=== PATIENT | female | born 1935 | race Caucasian/White ===

== ENCOUNTER 2016-04-21 18:41 | Emergency (ER) | payer MEDICARE, OTHER ==
[~2016-04-21] VITALS: Ht 149.9 cm; Wt 55.0 kg
[~2016-04-21 18:41] MED LIST: ALBI30PE SQ; APIX5TAB PO; CARV12.579 PO; DONE5TAB7 PO; EZET10TA3 PO; FAMO-18 PO; FER325 PO; FURO20TA3 PO; GLIM4TAB PO; LANT3I SC; MIRT30TA5 PO; MTF1000T PO; NIT4 SL; SERT50TA6 PO; TRAM-40 PO; ZOC20 PO
[2016-04-21 19:12] VITALS: Ht 149.9 cm; Wt 55.0 kg
[2016-04-22] MEDS ORDERED: HYDROCODONE/APAP (10/325) TAB PO ONE (02:30)
--- NOTE | 2016-04-22 02:48 | RADRPT ---
PROCEDURE: XR Elbow. CLINICAL INDICATION: fall TECHNIQUE: AP, lateral and oblique views of the left elbow performed. COMPARISON: None. FINDINGS: No fracture or dislocation is seen. The lateral view is fairly oblique, however, making exclusion o f effusion difficult. Cortical irregularity of the lateral humeral condyle may be due to prior tend onitis or trauma. No definite acute abnormality. IMPRESSION: No definite acute abnormality but no true lateral view was obtained. If there is strong clinical henderson spicion for fracture or effusion, true lateral view could be performed. RPTAT: [facility]BE Physician Kristian Date Time Electronically viewed and signed by Mili Suarez Physician on 04/22/2016 02:48 LE/
--- NOTE | 2016-04-22 02:55 | RADRPT ---
PROCEDURE: XR bilateral knees CLINICAL INDICATION: fall TECHNIQUE: 3 separate views of each knee were obtained. The images reviewed on a PACS workstation . COMPARISON: None. FINDINGS: Images of the right knee show moderate osteoarthritic change with spurring of the tibial spines and dry compartmental osteophytes. Medial and patellofemoral compartment narrowing is seen with areas o f subchondral sclerosis and lucency. No fracture or dislocation is seen. No joint effusion is seen . Vascular calcification is seen. There is slight lateral subluxation of the tibia. There may be a tiny joint effusion. Images of the left knee show osteoarthritic change with spurring of the tibial spines and tricompart ment osteophytes. Mild patellofemoral joint space narrowing and moderate lateral compartment narrow ing is seen. Subchondral sclerosis is seen in the medial compartment. No definite fracture, disloc ation, and/or effusion is seen. Vascular calcification is seen. IMPRESSION: Degenerative change of both knees without definite fracture or dislocation. Probable tiny right eff usion. RPTAT: HLBE Physician Kristian Date Time Electronically viewed and signed by Physician Kristian on 04/22/2016 02:55 LE/
--- NOTE | 2016-04-22 03:15 | RADRPT ---
PROCEDURE: CT Brain without contrast. CLINICAL INDICATION: Fall TECHNIQUE: Axial images from the skull base through the vertex without IV contrast. Multiplanar r eformatted images were made. Images were reviewed on a PACS workstation. The CTDIvol is 45.01 mGy and the DLP is 720.23 mGycm. One or more of the following dose reduction techniques were used: auto mated exposure control, adjustment of the mA and/or kV according to patient size, or use of iterativ e reconstruction technique. COMPARISON: 07/11/2014 FINDINGS: The ventricles and cisterns are normal for age. There is no evidence for territorial infarction or intracranial hemorrhage. No mass or midline shift is seen. No extra-axial fluid collection is seen . The visualized paranasal sinuses and mastoids are clear. No calvarial fractures are seen. IMPRESSION: No definite acute intracranial abnormality. RPTAT: HLBE Physician Kristian Date Time Electronically viewed and signed by Mili Suarez Physician on 04/22/2016 03:14 LE/
--- NOTE | 2016-04-22 03:17 | RADRPT ---
PROCEDURE: CT scan facial bones CLINICAL INDICATION: Fall TECHNIQUE: CT scan of the face was performed on the a high-resolution multidetector CT scanner wit h multiple contiguous axial images obtained through the face. Coronal and sagittal reformatted imag es were obtained from the axial source images. Exam CTDI = 29.41 mGy and the DLP = 497.2 mGy-cm. One or more of the following dose reduction techniques were used: - Automated exposure control. - Adjustment of the mA and/or kV according to patient size. - Use of iterative reconstruction technique. COMPARISON: None available FINDINGS: The facial bones are intact. No fracture or dislocation is seen. Mucosal thickening in bilateral ma xillary sinuses and inferior frontal sinuses. The soft tissues are unremarkable. The orbital globe s are unremarkable. Nasal septum is minimally convex to the right. The zygomatic arches are symmet rically normal. Arterial calcification including bilateral cervical carotid arterial calcification. Degenerative changes in cervical spine. IMPRESSION: No acute abnormality seen. No facial fracture seen. Please see above. RPTAT: HJES .Abram Lei MD, Date Time Electronically viewed and signed by .Abram Lei MD, on 04/22/2016 03:17 .S/
--- NOTE | 2016-04-22 03:25 | ERD ---
ER Documentation Chief Complaint Date/Time DATE: 04/22/16 TIME: 03:24 Chief Complaint TRIPPED AND FELL FORWARD HITTING BOTH ARMS AND LEFT CHEEK. HEARD CRACK HPI There is a 80 year female suffered a mechanical trip and fall fell and hit her elbows and knees and along with her face patients that she felt she heard a crack. She denies any nausea vomiting fevers chills. She denies any focal neurological complaints. ROS All systems reviewed and are negative except as per history of present illness. Medications Home Meds Active Scripts Famotidine* (Pepcid*) 20 Mg Tablet, 20 MG PO BID for 30 Days, TAB Prov:ASAF RENTERIA DO 02/24/15 Reported Medications Sertraline Hcl* (Sertraline Hcl*) 50 Mg Tablet, 50 MG PO DAILY, #30 TAB 04/12/15 Ezetimibe* (Zetia*) 10 Mg Tablet, 10 MG PO DAILY, TAB 04/12/15 Tramadol Hcl* (Ultram*) 50 Mg Tablet, 100 MG PO Q8, TAB 04/12/15 Mirtazapine* (Mirtazapine*) 30 Mg Tablet, 30 MG PO DAILY, TAB 04/12/15 Metformin* (Glucophage*) Unknown Strength Tablet, 1000 MG PO BID, TAB 02/24/15 Albiglutide (Tanzeum) 30 Mg/0.5 Ml Pen.injctr, 30 MG SQ WEEKLY 02/24/15 Nitroglycerin* (Nitrostat*) 0.4 Mg Tab.subl, 0.4 MG SL Q5MIN Y for CHEST PAIN, BOTTLE 08/17/14 Insulin Glargine* (Lantus*) 100 Unit/Ml Soln, 8 UNIT SC AM, EA 08/17/14 Apixaban* (Eliquis*) 5 Mg Tablet, 5 MG PO BID, TAB 07/11/14 Furosemide* (Furosemide*) 20 Mg Tablet, 20 MG PO DAILY, TAB 07/11/14 Donepezil* (Donepezil*) 5 Mg Tablet, 5 MG PO AM, TAB 07/11/14 Ferrous Sulfate* (Ferrous Sulfate*) 325 Mg Tabec, 325 MG PO BID, TAB 07/11/14 Glimepiride* (Glimepiride*) 4 Mg Tablet, 4 MG PO BID, TAB 04/08/14 Simvastatin (Simvastatin) 20 Mg Tablet, 20 MG PO HS, TAB 04/08/14 Carvedilol* (Carvedilol*) 12.5 Mg Tablet, 12.5 MG PO BID, TAB 04/08/14 Allergies Allergies: Coded Allergies: iodine (Verified Allergy, Severe, SHORT OF BREATH, 02/24/15) Sulfa (Sulfonamide Antibiotics) (Unverified Allergy, Unknown, 02/24/15) PMhx/Soc History of Surgery: Yes (ovarian) Anesthesia Reaction: No Hx Neurological Disorder: Yes (encephalopathy, alzheimers, dementia) Hx Respiratory Disorders: No Hx Cardiac Disorders: Yes (CHF, Afib, Aortic Valve disorder, HTN, high cholesterol) Hx Psychiatric Problems: Yes (Anxiety) Hx Miscellaneous Medical Probl: Yes (htn/dm) Hx Alcohol Use: No Hx Substance Use: No Hx Tobacco Use: No Smoking Status: Never smoker Physical Exam Vitals Vital Signs Date Time Temp Pulse Resp B/P Pulse Ox O2 Delivery O2 Flow Rate FiO2 04/21/16 19:12 97.7 43 16 129/74 98 Physical Exam Const: [] Head: Atraumatic Eyes: Normal Conjunctiva ENT: Normal External Ears, Nose and Mouth. Neck: Full range of motion..~ No meningismus. Resp: Clear to auscultation bilaterally Cardio: Regular rate and rhythm, no murmurs Abd: Soft, non tender, non distended. Normal bowel sounds Skin: No petechiae or rashes Back: No midline or flank tenderness Ext: No cyanosis, or edema Neur: Awake and alert Psych: Normal Mood and Affect Results 24 hrs Current Medications Medications (Trade) Dose Ordered Sig/Tobias Route PRN Reason Start Time Stop Time Status Last Admin Dose Admin Acetaminophen/ Hydrocodone Bitart ([place] (325)) 1 tab ONCE ONCE PO 04/22/16 02:30 04/22/16 02:31 DC 04/22/16 02:23 Procedures/MDM Head CT and facial CT were negative. X-ray Elbow 3V Interpreted by me: Fat Pads: Normal Bones: No fracture Joints: No dislocation Foreign body: None X-ray Knee left 3V Interpreted by me: Bones: [No fracture] Joints: [No dislocation] Foreign body: [None] X-ray Knee right 3V Interpreted by me: Bones: [No fracture] Joints: [No dislocation] Foreign body: [None] Medical decision making: This very pleasant patient's a mechanical fall. She has no evidence of any focal neurological pain. She is no evidence of fracture. She will be discharged home. Departure Diagnosis: Primary Impression: Fall Encounter type: initial encounter Qualified Code: W19.XXXA - Fall, initial encounter Additional Impression: Fall with no significant injury Encounter type: initial encounter Qualified Code: W19.XXXA - Fall with no significant injury, initial encounter Condition: Stable THERESA GILMAN Apr 22, 2016 03:25
[2016-04-22] MEDS ORDERED: ULT50 PO (03:26)
[2016-04-22 03:48] VITALS: BP 139/68; PULSE 84; RESP 16
== END 2016-04-22 03:50 | disposition home or self-care (01) ==
LOC: E/R 18:41
DX: S59.901A Unspecified injury of right elbow, initial encounter (principal); S89.92XA Unspecified injury of left lower leg, initial encounter; S89.91XA Unspecified injury of right lower leg, initial encounter; S09.93XA Unspecified injury of face, initial encounter; I10 Essential (primary) hypertension; E11.9 Type 2 diabetes mellitus without complications; I50.9 Heart failure, unspecified; W01.10XA Fall on same level from slipping, tripping and stumbling with subsequent striking against unspecified object, initial encounter; Y92.9 Unspecified place or not applicable; Z79.84 Long term (current) use of oral hypoglycemic drugs; Z79.4 Long term (current) use of insulin
CPT/HCPCS: 70450; 70486

== ENCOUNTER 2016-10-25 21:08 | Emergency (ER) | payer MEDICARE, OTHER ==
[~2016-10-25] VITALS: Wt 54.5 kg
[~2016-10-25 21:08] MED LIST changes: -FAMO-18 PO; +FAMO-96 PO; +SIMV20TA2 PO; +TRAM50TA2 PO; -ZOC20 PO
--- NOTE | 2016-10-25 22:23 | ERA ---
ER Documentation Chief Complaint Date/Time DATE: 10/25/16 TIME: 22:23 Chief Complaint EPIGASTRIC BURNING SENSTATION W/ NAUSEA X15DAY HPI 81-year-old woman brought in by daughter for epigastric burning discomfort worse with p.o. intake. Pain is nonradiating and nonexertional and has been present all day today but she has had multiple similar episodes in the past. She does have a PMD appointment on Thursday (in 2 days). She has a history of gastritis and diabetes mellitus but is noncompliant with her medication, daughter states she has not used any of her antidiabetic medications all day today. She has had no blood per rectum or melena, no fevers or chills, no chest pain or shortness of breath, no vomiting or diarrhea, no headache or blurry vision. ROS All systems reviewed and are negative except as per history of present illness. Medications Home Meds Active Scripts Famotidine* (Famotidine*) 40 Mg Tablet, 40 MG PO HS, #30 TAB Prov:BLANCA TONG MD 10/25/16 Mag Hydrox/Al Hydrox/Simeth (Maalox Advanced Suspension) 355 Ml Oral.susp, 2 TSP PO TID, #24 OZ Prov:BLANCA TONG MD 10/25/16 Omeprazole* (Omeprazole*) 20 Mg Capsule.dr, 20 MG PO DAILY, #30 Prov:BLANCA TONG MD 10/25/16 Tramadol HCl (Tramadol HCl) 50 Mg Tablet, 50 MG PO Q6 Y for PAIN, #12 TAB Prov:THERESA GILMAN 04/22/16 Famotidine* (Pepcid*) 20 Mg Tablet, 20 MG PO BID for 30 Days, TAB Prov:ASAF RENTERIA DO 02/24/15 Reported Medications Sertraline Hcl* (Sertraline Hcl*) 50 Mg Tablet, 50 MG PO DAILY, #30 TAB 04/12/15 Ezetimibe* (Zetia*) 10 Mg Tablet, 10 MG PO DAILY, TAB 04/12/15 Tramadol Hcl* (Ultram*) 50 Mg Tablet, 100 MG PO Q8, TAB 04/12/15 Mirtazapine* (Mirtazapine*) 30 Mg Tablet, 30 MG PO DAILY, TAB 04/12/15 Metformin* (Glucophage*) Unknown Strength Tablet, 1000 MG PO BID, TAB 11/14/15 Albiglutide (Tanzeum) 30 Mg/0.5 Ml Pen.injctr, 30 MG SQ WEEKLY 02/24/15 Nitroglycerin* (Nitrostat*) 0.4 Mg Tab.subl, 0.4 MG SL Q5MIN Y for CHEST PAIN, BOTTLE 08/17/14 Insulin Glargine* (Lantus*) 100 Unit/Ml Soln, 8 UNIT SC AM, EA 08/17/14 Apixaban* (Eliquis*) 5 Mg Tablet, 5 MG PO BID, TAB 07/11/14 Furosemide* (Furosemide*) 20 Mg Tablet, 20 MG PO DAILY, TAB 07/11/14 Donepezil* (Donepezil*) 5 Mg Tablet, 5 MG PO AM, TAB 07/11/14 Ferrous Sulfate* (Ferrous Sulfate*) 325 Mg Tabec, 325 MG PO BID, TAB 07/11/14 Glimepiride* (Glimepiride*) 4 Mg Tablet, 4 MG PO BID, TAB 04/08/14 Simvastatin (Simvastatin) 20 Mg Tablet, 20 MG PO HS, TAB 04/08/14 Carvedilol* (Carvedilol*) 12.5 Mg Tablet, 12.5 MG PO BID, TAB 04/08/14 Allergies Allergies: Coded Allergies: iodine (Verified Allergy, Severe, SHORT OF BREATH, 02/24/15) Sulfa (Sulfonamide Antibiotics) (Unverified Allergy, Unknown, 02/24/15) PMhx/Soc Alzheimer's dementia, congestive heart failure, atrial fibrillation, diabetes mellitus, hypertension, aortic valve disorder, dyslipidemia, anxiety History of Surgery: Yes (ovarian) Anesthesia Reaction: No Hx Neurological Disorder: Yes (encephalopathy, alzheimers, dementia) Hx Respiratory Disorders: No Hx Cardiac Disorders: Yes (CHF, Afib, Aortic Valve disorder, HTN, high cholesterol) Hx Psychiatric Problems: Yes (Anxiety) Hx Miscellaneous Medical Probl: Yes (htn/dm) Hx Alcohol Use: No Hx Substance Use: No Hx Tobacco Use: No FmHx Family History: No diabetes Physical Exam Vitals Vital Signs Date Time Temp Pulse Resp B/P Pulse Ox O2 Delivery O2 Flow Rate FiO2 10/25/16 21:10 97.6 62 18 184/70 99 Physical Exam GENERAL: Well-developed, well-nourished, well-hydrated, in no apparent distress , looks nontoxic in appearance HEENT: Moist mucous membranes, pink conjunctiva, no cervical spine tenderness or step-off deformities, no goiter, no jaundice or icterus, extraocular movements intact without pain. No submandibular induration, and no pharyngeal erythema NEURO: Alert and oriented 3, cranial nerves II through XII intact bilaterally, pupils equal round reactive to light, no focal deficits or facial asymmetry, sensation intact distally Strength 5/5 in upper and lower extremities bilaterally CARDIAC: Regular rate and rhythm, no murmurs rubs or gallops LUNGS: Clear bilaterally no wheezing crackles or stridor ABDOMEN: Soft nontender, no guarding, no rigidity, no rebound, no psoas sign no obturator sign. Normoactive bowel sounds SKIN: Warm and dry to touch, no abrasions, contusions, or hematomas, no lacerations, no ecchymosis, no target lesions, and without ulcers EXTREMITIES: No clubbing cyanosis or edema, calves are bilaterally symmetrical, no Homans sign, no popliteal cord sign. Distal pulses equal and bilateral PSYCH: Normal affect without agitation or irritability Result Diagram: 10/25/16223710/25/162237 Results 24 hrs Laboratory Tests Test 10/25/16 22:38 10/26/16 00:19 10/26/16 02:23 White Blood Count 7.410^3/ul Red Blood Count 4.2910^6/ul Hemoglobin 12.4g/dl Hematocrit 37.0% Mean Corpuscular Volume 86.2fl Mean Corpuscular Hemoglobin 28.9pg Mean Corpuscular Hemoglobin Concent 33.5g/dl Red Cell Distribution Width 11.8% Platelet Count 83822^3/UL Mean Platelet Volume 10.4fl Neutrophils % 60.2% Lymphocytes % 26.0% Monocytes % 8.9% Eosinophils % 3.9% Basophils % 0.7% Nucleated Red Blood Cells % 0.0/100WBC Neutrophils # 4.510^3/ul Lymphocytes # 1.910^3/ul Monocytes # 0.710^3/ul Eosinophils # 0.310^3/ul Basophils # 0.110^3/ul Nucleated Red Blood Cells # 0.010^3/ul Urine Color STRAW Urine Clarity CLEAR Urine pH 5.0 Urine Specific [place] 1.022 Urine Ketones NEGATIVEmg/dL Urine Nitrite NEGATIVEmg/dL Urine Bilirubin NEGATIVEmg/dL Urine Urobilinogen NEGATIVEmg/dL Urine Leukocyte Esterase NEGATIVELeu/ul Urine Hemoglobin NEGATIVEmg/dL Urine Glucose 3+mg/dL Urine Total Protein NEGATIVEmg/dl Sodium Level 128mmol/L Potassium Level 4.5mmol/L Chloride Level 88mmol/L Carbon Dioxide Level 25mmol/L Anion Gap 20 Blood Urea Nitrogen 25mg/dl Creatinine 1.00mg/dl Glucose Level 668mg/dl Calcium Level 9.3mg/dl Total Bilirubin 0.2mg/dl Direct Bilirubin 0.00mg/dl Indirect Bilirubin 0.2mg/dl Aspartate Amino Transf (AST/SGOT) 21IU/L Alanine Aminotransferase (ALT/SGPT) 30IU/L Alkaline Phosphatase 180IU/L Troponin I < 0.012ng/ml Total Protein 7.7g/dl Albumin 5.0g/dl Globulin 2.70g/dl Albumin/Globulin Ratio 1.85 Lipase 302U/L Bedside Glucose > 595mg/dL 268mg/dL Current Medications Medications (Trade) Dose Ordered Sig/Tobias Route PRN Reason Start Time Stop Time Status Last Admin Dose Admin Famotidine (Pepcid) 40 mg ONCE STAT PO 10/25/16 22:26 10/25/16 22:29 DC 10/25/16 23:02 Miscellaneous Medication (Gi Cocktail (2)) 40 ml ONCE STAT PO 10/25/16 22:26 10/25/16 22:29 DC 10/25/16 23:03 [place]onna/ Phenobarbital () 2 tab ONCE STAT PO 10/25/16 22:26 10/25/16 22:29 DC 10/25/16 23:02 Ketorolac Tromethamine (Toradol) 30 mg ONCE STAT IM 10/25/16 22:26 10/25/16 22:29 DC 10/25/16 23:04 Ondansetron HCl 4 mg 4 mg ONCE STAT ODT 10/25/16 22:26 10/25/16 22:29 DC 10/25/16 23:04 Sodium Chloride (NS) 1,000 ml @ 1,000 mls/hr Q1H STAT IV 10/26/16 00:22 10/26/16 01:21 DC 10/26/16 01:25 Insulin Human Regular (Novolin-R) 12 unit ONCE ONCE IV 10/26/16 00:30 10/26/16 00:30 DC Insulin Human Regular (Humulin R) 12 unit ONCE ONCE IV 10/26/16 00:30 10/26/16 00:31 DC 10/26/16 01:27 Procedures/MDM Patient was placed on millwright apprentice rhythm strip revealed a sinus rhythm at about 60 bpm with upright P and T waves. Patient was afebrile. I administered Toradol 30 mg intramuscular injection, GI cocktail 50 cc p.o., Zofran 4 mg p.o. for nausea, and famotidine 40 mg p.o. with good effect. Patient symptoms improved and she is without complaints at this time. EKG performed, read by me revealed a sinus bradycardia 53 bpm, normal axis, narrow QRS complex, no concerning ST elevations or depressions noted. CBC was normal, electrolytes revealed dehydration with a BUN/creatinine of 25/1 hyperglycemia 668, liver function tests were unremarkable the lipase was slightly elevated at 302, alkaline phosphatase elevated at 180, troponin was negative. An IV line was established and patient was given 1 L normal saline intravenously for dehydration and regular insulin 12 units IV for acute asymptomatic hyperglycemia without evidence of acidosis. I repeated the patient's abdominal examination and remains benign, she has no tenderness, rigidity, rebound, or guarding. Patient's vital signs remained normal, she is tolerating p.o., and feels better. Patient's blood sugar fell to within normal limits. Differential diagnoses considered, included but not limited to acute coronary syndrome, pulmonary embolism, aortic dissection, abdominal aortic aneurysm, sepsis, stroke, meningitis, encephalitis, pneumonia, appendicitis, cholecystitis , bowel obstruction, pyelonephritis, nephrolithiasis, cystitis, as well as metabolic, hematologic, and electrolyte abnormalities. As well as abscess, cellulitis, fractures, and dislocations. Patient feels much better at this time, and vital signs are normal, symptoms have improved. I did give strict instructions to return to the ED if symptoms continue or worsen, patient will otherwise follow-up with primary care physician. Patient understood instructions and agreed to plan. Disclaimer: Inadvertent spelling and grammatical errors are likely due to EHR/ dictation software use and do not reflect on the overall quality of patient care. Also, please note that the electronic time recorded on this note does not necessarily reflect the actual time of the patient encounter. Departure Diagnosis: Primary Impression: Acute hyperglycemia Additional Impressions: Dehydration Acute abdominal pain Gastritis Qualified Code: K29.00 - Acute superficial gastritis without hemorrhage Condition: BLNACA Felipe MD Oct 25, 2016 22:23
[2016-10-25] MEDS ORDERED: BELLADONNA/PHENOBARBITAL TAB PO STA (22:26)
[2016-10-25] MEDS ORDERED: ONDANSETRON (ODT) 4 MG TAB ODT STA (22:26)
[2016-10-25] MEDS ORDERED: LIDOCAINE/MYLANTA 40 ML BTL PO STA (22:26)
[2016-10-25] MEDS ORDERED: KETOROLAC 15 MG INJ IM STA (22:26)
[2016-10-25] MEDS ORDERED: FAMOTIDINE 20 MG TAB PO STA (22:26)
[2016-10-25] MEDS ORDERED: FAMO40TA52 PO (22:29)
[2016-10-25] MEDS ORDERED: MAG355OR14 PO (22:29)
[2016-10-25] MEDS ORDERED: OMEP20CA16 PO (22:29)
[2016-10-25 23:28] LABS: ADD SCAN DIFF NO
[2016-10-25 23:31] LABS: BASOPHIL # 0.1 10^3/ul (0.0-0.1); BASOPHILS % 0.7 % (0.0-2.0); EOSINOPHILS # 0.3 10^3/ul (0.0-0.5); EOSINOPHILS % 3.9 % (0.0-7.0); HEMOGLOBIN 12.4 g/dl (12.0-16.0); LYMPHOCYTES # 1.9 10^3/ul (0.8-2.9); MEAN CORPUSCULAR HEMOGLOBIN 28.9 pg (29.0-33.0); MEAN CORPUSCULAR HGB CONC 33.5 g/dl (32.0-37.0); MEAN CORPUSCULAR VOLUME 86.2 fl (82.0-101.0); MEAN PLATELET VOLUME 10.4 fl (7.4-10.4); MONOCYTE # 0.7 10^3/ul (0.3-0.9); MONOCYTES % 8.9 % (0.0-11.0); NEUTROPHIL # 4.5 10^3/ul (1.6-7.5); NEUTROPHILS % 60.2 % (39.0-77.0); PLATELET COUNT 288 10^3/UL (140-415); RED BLOOD COUNT 4.29 10^6/ul (4.20-5.40); RED CELL DISTRIBUTION WIDTH 11.8 % (11.5-14.5); WHITE BLOOD COUNT 7.4 10^3/ul (4.8-10.8)
[2016-10-25 23:40] LABS: ADD UMIC NO; UR ASCORBIC ACID 20 mg/dL (NEGATIVE); UR BILIRUBIN (Dip) NEGATIVE (NEGATIVE); UR BLOOD (Dip) NEGATIVE (NEGATIVE); UR CLARITY CLEAR (CLEAR); UR COLOR STRAW (YELLOW); UR GLUCOSE (Dip) 3+ mg/dL (NEGATIVE); UR KETONES (Dip) NEGATIVE (NEGATIVE); UR LEUKOCYTE ESTERASE (Dip) NEGATIVE Leu/ul (NEGATIVE); UR NITRITE (Dip) NEGATIVE (NEGATIVE); UR SPECIFIC GRAVITY (Dip) 1.022 (1.003-1.030); UR TOTAL PROTEIN (Dip) NEGATIVE (NEGATIVE); UR UROBILINOGEN (Dip) NEGATIVE (NEGATIVE)
[2016-10-26 00:01] LABS: ALANINE AMINOTRANSFERASE 30 IU/L (13-69); ALBUMIN/GLOBULIN RATIO 1.85; ALKALINE PHOSPHATASE 180 IU/L (42-121); ANION GAP 20 (8-16); ASPARTATE AMINO TRANSFERASE 21 IU/L (15-46); BILIRUBIN,INDIRECT 0.2 mg/dl (0-1.1); BILIRUBIN,TOTAL 0.2 mg/dl (0.2-1.3); BLOOD UREA NITROGEN 25 mg/dl (7-20); CALCIUM 9.3 mg/dl (8.4-10.2); CARBON DIOXIDE 25 mmol/L (21-31); CHLORIDE 88 mmol/L (97-110); POTASSIUM 4.5 mmol/L (3.5-5.1); SODIUM 128 mmol/L (135-144); TOTAL PROTEIN 7.7 g/dl (6.1-8.1)
[2016-10-26 00:11] LABS: GLUCOSE 668 mg/dl (70-220); TROPONIN-I < 0.012 ng/ml (0.00-0.12)
[2016-10-26] MEDS ORDERED: SOD CHLORIDE 0.9% 1,000 ML IV STA (00:22)
[2016-10-26] MEDS ORDERED: INSULIN REGULAR, HUMAN 100 UNIT/1 ML 3ML VIAL IV ONE (00:30)
[2016-10-26] MEDS ORDERED: INSULIN REGULAR 10 ML INJ IV ONE (00:30)
== END 2016-10-26 03:30 | disposition home or self-care (01) ==
LOC: E/R 21:08
DX: E11.65 Type 2 diabetes mellitus with hyperglycemia (principal); E86.0 Dehydration; K29.00 Acute gastritis without bleeding; I50.9 Heart failure, unspecified; I10 Essential (primary) hypertension; G30.9 Alzheimer's disease, unspecified; Z79.4 Long term (current) use of insulin; Z79.84 Long term (current) use of oral hypoglycemic drugs
CPT/HCPCS: 36415; 80053; 81003; 82962; 83690; 84484; 85025; 93005; 96372; 96374; 99284; J1815; J1885; J7030

== ENCOUNTER 2017-04-20 01:20 | Inpatient (IN) | END 2017-04-27 19:56 | disposition home or self-care (01) | DRG 308 ==

== ENCOUNTER 2018-02-21 06:32 | Inpatient (IN) | END 2018-02-23 13:00 | disposition home or self-care (01) | DRG 292 ==